=== PATIENT | male | born 1975 | race Caucasian/White ===

== ENCOUNTER 2021-11-26 11:27 | Emergency (ER) | payer OTHER ==
[2021-11-26] MEDS ORDERED: ONDANSETRON HCL4 MG PO (15:20)
[2021-11-26] MEDS ORDERED: NORCO 5-325 TA1 EACH PO (15:20)
== END 2021-11-26 16:05 | disposition home or self-care (01) ==
LOC: FER 11:27
DX: S61.212A Laceration without foreign body of right middle finger without damage to nail, initial encounter (principal); R11.2 Nausea with vomiting, unspecified; G89.18 Other acute postprocedural pain; F17.210 Nicotine dependence, cigarettes, uncomplicated; Z88.0 Allergy status to penicillin; Z90.49 Acquired absence of other specified parts of digestive tract; W45.8XXA Other foreign body or object entering through skin, initial encounter
CPT/HCPCS: 99283; J1885; Q0162